=== PATIENT | female | born 1955 | race Caucasian/White ===

== ENCOUNTER → 2016-05-28 | Outpatient (CLI) | payer MEDICARE ==
[~2016-05-28] MED LIST: ASPI325T PO; CARB15DR2 OP; CARV3.12 PO; CARVEDILOL PO; GLUC100015 PO; INSU100C6 SQ; INSU100V SQ; INSU100V12 SQ; INSU100V8 SQ; ISOS30TA6 PO; LEVO175T9 PO; LEVO75TA10 PO; LISI-625 PO; LOVA20TA3 PO; METF10002 PO
--- NOTE | 2016-05-28 10:33 | DI ---
INDICATION: ITS.REASON: R07.2 PRECORDIAL PAIN; R06.02 SOB PROCEDURE: CHEST 2-VIEWS UPRIGHT (PA \T\ LAT) Encounter: Initial COMPARISON: None FINDINGS: The lungs are clear without evidence of focal abnormal airspace opacity. There is no pleural effusion or pneumothorax. The heart size, mediastinal contours and pulmonary vascularity are within normal limits. There is no significant skeletal abnormality. IMPRESSION: No acute cardiopulmonary disease. .
== END ==
LOC: LAB 10:09
PROVIDERS: ATTEND Internal Medicine Cardiovascular Disease
DX: R07.2 Precordial pain (principal); R06.02 Shortness of breath
CPT/HCPCS: 36415; 84484

== ENCOUNTER 2016-06-04 10:26 | Outpatient (CLI) | payer MEDICARE ==
[2016-06-04] VITALS (13 sets, daily range): BP systolic 99–131; BP diastolic 55–64; PULSE 61–73; RESP 13–26; TEMP 97.8; O2SAT 94–97; Ht 170.2 cm; Wt 90.8 kg
[~2016-06-04] VITALS: Ht 170.2 cm; Wt 90.8 kg
[~2016-06-04 10:26] MED LIST changes: -CARB15DR2 OP; -CARVEDILOL PO; -INSU100V SQ; -INSU100V8 SQ; -LEVO175T9 PO; +NORMAL SALINE 1,000 ML IV SCH
--- NOTE | 2016-06-04 10:38 | NUR ---
ADMIT PT AMBULATORY TO ROOM 120. ATTENDING.
[2016-06-04] MEDS ORDERED: CARVEDILOL PO (11:12)
[2016-06-04] MEDS ORDERED: LEVO175T9 PO (11:12)
[2016-06-04] MEDS ORDERED: LIDOCAINE 1% (10mg/ml) 30ml SDV ONE (11:21)
[2016-06-04] MEDS ORDERED: HEPARIN 1,000units in NS 500ml BAG IV ONE (11:21)
[2016-06-04] MEDS ORDERED: CARB15DR2 OP (11:26)
[2016-06-04 11:32] LABS: BASOPHILS % (AUTO) 0.2 % (0-2); EOSINOPHILS # (AUTO) 0.1 T/MM3 (0-0.5); EOSINOPHILS % (AUTO) 2.9 % (0-4); HCT - HEMATOCRIT 34.4 % (36-46); HGB - HEMOGLOBIN 11.3 GM/DL (12-16); LYMPHOCYTES # (AUTO) 2.3 T/MM3 (1-4.8); LYMPHOCYTES % (AUTO) 46.6 % (23-45); MEAN CORPUSCULAR HGB 29.2 UUG (26-34); MEAN CORPUSCULAR HGB CONC(MCHC 32.8 GM/DL (31-37); MEAN CORPUSCULAR VOLUME 88.9 UM3 (80-100); MEAN PLATELET VOLUME 10.4 UM3 (9.4-12.4); MONOCYTES # (AUTO) 0.3 T/MM3 (0-0.8); MONOCYTES % (AUTO) 6.8 % (0-9.0); NEUTROPHILS #(AUTO)-ABSOLUTE 2.1 T/MM3 (1.8-7.7); NEUTROPHILS % (AUTO) 43.5 % (33-66); RED BLOOD COUNT 3.87 M/MM3 (4.00-5.20); WBC - WHITE BLOOD COUNT 4.8 T/MM3 (4.5-11.0)
[2016-06-04 11:41] LABS: ANION GAP 14 MEQ/L (5-15); BUN/CREATININE RATIO 28 RATIO (6-26); CALCIUM 9.8 MG/DL (8.4-10.2); CHLORIDE 106 MEQ/L (98-107); CO2 - CARBON DIOXIDE 25 MEQ/L (22-30); CREATININE 0.8 MG/DL (0.7-1.2); GLOMERULAR FILTRATION RATE 73; GLUCOSE 181 MG/DL (65-110); POTASSIUM 4.1 MEQ/L (3.6-5); SODIUM 145 MEQ/L (134-144)
--- NOTE | 2016-06-04 12:05 | NUR ---
CM CM IN TO VISIT PATIENT, SHE IS A&O. PATIENT PLANS TO DISCHARGE HOME, DENIES ANY DISCHARGE NEEDS. CM CONTACT INFORMATION PROVIDED. ALSO GAVE INFORMATION ON DPOA PER PATIENT REQUEST. Addendum: 06/04/16 at 1206 by ADRI JOHNSON RN Amended: Links added.
[2016-06-04] MEDS ORDERED: MIDAZOLAM 2mg/2ml INJECTION ONE (12:48)
[2016-06-04] MEDS ORDERED: FENTANYL 100mcg/2ml INJECTION ONE (12:48)
[2016-06-04] MEDS ORDERED: VERAPAMIL 5mg/2ml INJECTION IV ONE (12:49)
[2016-06-04] MEDS ORDERED: SALINE FLUSH 10ml SYRINGE ONE (12:49)
[2016-06-04] MEDS ORDERED: NITROGLYCERIN 50mg/10ml INJECTION IV ONE (12:49)
--- NOTE | 2016-06-04 13:05 | NUR ---
CATH PT TO [employer]IEF MECHANICAL OFFICER PER CATH CART
[2016-06-04] MEDS ORDERED: NITROGLYCERIN 0.4 MG SUBLINGUAL TABLET SL PRN (13:45)
[2016-06-04] MEDS ORDERED: BISACODYL 5 MG E.C. TABLET PO PRN (13:45)
[2016-06-04] MEDS ORDERED: MAG-AL + SIM LIQUID 30 ML UDC PO PRN (13:45)
[2016-06-04] MEDS ORDERED: ACETAMINOPHEN 325 MG TABLET PO PRN (13:45)
[2016-06-04] MEDS ORDERED: MILK OF MAGNESIA 30 ML SUSP PO PRN (13:45)
[2016-06-04] MEDS ORDERED: LORAZEPAM 0.5 MG TABLET PO PRN (13:45)
[2016-06-04] MEDS ORDERED: LORAZEPAM 2 MG/ML INJECTION IV PRN (13:45)
[2016-06-04] MEDS ORDERED: HYDROCODONE/APAP 5 mg/325 mg TABLET PO PRN (13:45)
[2016-06-04] MEDS ORDERED: PROMETHAZINE 25 MG INJECTION IV PRN (13:45)
[2016-06-04] MEDS ORDERED: MORPHINE SULFATE 4 MG SYRINGE IV PRN ×2 (13:45)
[2016-06-04] MEDS ORDERED: METOCLOPRAMIDE 10mg/2ml INJECTION IV PRN (13:45)
[2016-06-04] MEDS ORDERED: ONDANSETRON 4mg/2ml INJECTION IV PRN (13:45)
[2016-06-04] MEDS ORDERED: ATROPINE 1 MG/ML VIAL IV PRN (13:45)
[2016-06-04] MEDS ORDERED: BISACODYL 10 MG SUPPOSITORY RECTALLY PRN (13:45)
--- NOTE | 2016-06-04 13:50 | NUR ---
RETURN PT RETURNED TO ROOM 120. WAS ABLE TO STAND AND PIVOT TO S.U. BED. PT DENIES DISCOMFORT. JUST WANTS SOMETHING TO EAT AND DRINK. RT WRIST HAS TR BAND IN PLACE. INSERTION SITE NOTED. NO DRAINAGE OR BLEEDING.
--- NOTE | 2016-06-04 16:45 | NUR ---
STATUS DRESSING ON PUNCTURE SITE (RT WRIST) PER PROTOCOL. NO S/SX OF BLEEDING OR DRAINAGE NOTED AT ANY TIME POST CATH. PT DENIES DISCOMFORT. PT TOLERATING SOLID FOOD WITHOUT N/V.
--- NOTE | 2016-06-04 16:50 | NUR ---
DISMISSAL WENT OVER WRITTEN DISMISSAL INSTRUCTIONS WITH PT INCLUDING MEDS, WOUND CARE, F/U APPT, ACTIVITY/RESTRICTIONS, S/SX TO REPORT. PT VERBALIZED UNDERSTANDING. PT'S PERSONAL BELONGINGS GATHERED INCLUDING HOME MEDS AND CELL PHONE. NO SCRIPTS WERE GIVEN. PT TAKEN OUT OF [facility] [facility] [place] [facility] FOR [place]SP[place] BY .
--- NOTE | 2016-06-05 11:31 | CVPROF ---
DATE OF PROCEDURE June 04, 2016 REFERRING ENTITY [facility] INDICATIONS The patient is a 60-year-old lady with history of coronary artery disease and percutaneous intervention in the past who has been having increasing angina and was referred for further evaluation by cardiac catheterization and possible intervention. INFORMED CONSENT Informed consent was obtained after explaining the procedure and the potential risks to the patient who agreed to proceed with the procedure. PROCEDURE 1. Left heart catheterization. 2. Coronary angiography. 3. Left ventriculography. TECHNIQUE She was prepped and draped in the usual sterile techniques. 1% lidocaine was used for local anesthesia. Using modified Seldinger technique, arterial access was obtained into the right radial artery with placement of a 6-Yakut arterial sheath. 3000 units of heparin, 300 mcg of nitroglycerin, and 2.5 mg of verapamil were given through the arterial sheath. Conscious sedation was performed using Versed and fentanyl. LEFT VENTRICULOGRAPHY Left ventriculography in single-plane GRESHAM shallow projection showed normal LV systolic function with ejection fraction of about 65% with no mitral regurgitation or gradient across the aortic valve. LVEDP was about 11. CORONARY ANGIOGRAPHY Left main was free of significant lesions and bifurcated into left anterior descending and left circumflex arteries. Left anterior descending artery had endovascular stent in mid segment which was widely patent with 10% in-stent restenosis. Remaining course of LAD had minor irregularities with no significant lesions. Diagonal artery had about 30% stenosis. The left circumflex artery was small and nondominant with diffuse disease of up to about 30%. First marginal was about 1.5 to 2 mm caliber vessel which had diffuse proximal 80% stenosis. Right coronary artery was large and dominant with endovascular stents in mid segment with about 30% in-stent restenosis. Remaining course of RCA, PDA and posterolateral arteries had irregularities but no hemodynamically significant lesions. The patient tolerated the procedure well with no complications. IMPRESSION 1. Coronary artery disease as described above. 2. Normal LV systolic function with ejection fraction of 65%. PLAN Medical management. ABENA
== END 2016-06-04 16:50 | disposition home or self-care (01) ==
LOC: CATH 10:26 → SRG 10:27 → CATH 16:50
PROVIDERS: ATTEND Internal Medicine Cardiovascular Disease
DX: T82.855A Stenosis of coronary artery stent, initial encounter (principal); I25.119 Atherosclerotic heart disease of native coronary artery with unspecified angina pectoris; R07.2 Precordial pain; I42.9 Cardiomyopathy, unspecified; I10 Essential (primary) hypertension; E78.2 Mixed hyperlipidemia; E11.9 Type 2 diabetes mellitus without complications; F17.210 Nicotine dependence, cigarettes, uncomplicated; E89.0 Postprocedural hypothyroidism; I25.2 Old myocardial infarction; Z79.82 Long term (current) use of aspirin; Z79.4 Long term (current) use of insulin; Z79.1 Long term (current) use of non-steroidal anti-inflammatories (NSAID); Z79.899 Other long term (current) drug therapy; Z82.49 Family history of ischemic heart disease and other diseases of the circulatory system
CPT/HCPCS: 36415; 80048; 85025; 93005; 93458; J1644; J2250; J3010; J3490; J7030; Q9967

== ENCOUNTER → 2016-06-14 | Outpatient (CLI) | payer MEDICARE ==
[~2016-06-14] MED LIST changes: +CARB15DR2 OP; -CARV3.12 PO; +CARVEDILOL PO; +LEVO175T9 PO; -LEVO75TA10 PO; -NORMAL SALINE 1,000 ML IV SCH
== END ==
LOC: WC.BC 14:54
DX: Z12.31 Encounter for screening mammogram for malignant neoplasm of breast (principal); N64.59 Other signs and symptoms in breast
CPT/HCPCS: 77063; G0202

== ENCOUNTER → 2016-07-12 | Outpatient (CLI) | payer MEDICARE | LOC: LAB 08:57 | PROVIDERS: ATTEND Physician Assistant Medical | DX: E89.0 Postprocedural hypothyroidism (principal) | CPT/HCPCS: 36415; 84443 ==